=== PATIENT | female | born 1995 | race Caucasian/White ===

== ENCOUNTER 2017-03-17 10:24 | Emergency (ER) | payer MEDICAID ==
[~2017-03-17] VITALS: Ht 160 cm; Wt 70.8 kg
[2017-03-17 10:26] VITALS: BP 133/90
== END 2017-03-17 10:47 | disposition home or self-care (01) ==
LOC: ED 10:24
DX: J02.9 Acute pharyngitis, unspecified (principal)

== ENCOUNTER 2017-03-25 21:07 | Emergency (ER) | payer MEDICAID ==
[2017-03-25 21:53] VITALS: BP 130/83
== END 2017-03-25 23:10 | disposition home or self-care (01) ==
LOC: ED 21:07
DX: T19.2XXA Foreign body in vulva and vagina, initial encounter (principal); X58.XXXA Exposure to other specified factors, initial encounter; Y93.89 Activity, other specified; Y92.89 Other specified places as the place of occurrence of the external cause; Y99.8 Other external cause status
CPT/HCPCS: 87491; 87591; J0696

== ENCOUNTER 2017-05-03 19:27 | Emergency (ER) | payer MEDICAID ==
[2017-05-03 22:27] VITALS: BP 130/75
== END 2017-05-03 22:27 | disposition home or self-care (01) ==
LOC: ED 19:27
DX: S02.5XXA Fracture of tooth (traumatic), initial encounter for closed fracture (principal); G43.909 Migraine, unspecified, not intractable, without status migrainosus; R03.0 Elevated blood-pressure reading, without diagnosis of hypertension; X58.XXXA Exposure to other specified factors, initial encounter; Y99.8 Other external cause status; Y93.89 Activity, other specified; Y92.89 Other specified places as the place of occurrence of the external cause
CPT/HCPCS: J1885; J3490

== ENCOUNTER 2017-07-28 20:50 | Emergency (ER) | payer SELFPAY ==
[2017-07-28 20:56] VITALS: BP 120/85
== END 2017-07-28 23:24 | disposition left against medical advice (07) ==
LOC: ED 20:50
DX: Z53.21 Procedure and treatment not carried out due to patient leaving prior to being seen by health care provider (principal)